=== PATIENT | female | born 1950 | race Caucasian/White ===

== ENCOUNTER → 2018-05-04 08:49 | Outpatient (CLI) | payer MEDICARE, SELFPAY ==
--- NOTE | 2018-05-04 | DI.MRI.S_ITS ---
PROCEDURE: MR KNEE RT WO CON INDICATIONS: UNILATERAL PRIMARY OSTEOARTHRITIS TECHNIQUE: Noncontrast sagittal PD fast spin echo and T2 fast spin echo with fat saturation, sagittal 3-D FLASH with fat saturation; coronal T1 spin echo and PD fast spin echo with fat saturation, and axial PD fast spin echo with fat saturation through the knee. COMPARISON: None. FINDINGS: Image quality: Excellent. Menisci: There is peripheral displacement of medial meniscus bowing medial collateral ligament. A complex tear involving posterior horn of medial meniscus is seen extending to inferior articulating surface. There is no evidence of focal lateral meniscal tear. The meniscal root ligaments appear intact. Cruciate ligaments: Myxoid degenerative changes involving ACL is seen. No full-thickness ACL rupture. PCL is intact. Medial structures: There is low grade proximal medial collateral ligament sprain near its femoral insertion. No MCL rupture.. The posterior oblique ligament, semimembranosus tendon insertions, oblique popliteal ligament, and meniscocapsular junction appear intact. Visualized portions of the pes anserinus tendons appear normal. No abnormal bursal fluid. Lateral structures: The lateral collateral ligament, long and short heads of the biceps femoris tendon appear intact. The popliteus tendon appears normal; the popliteofibular ligament appears intact. The posterosuperior and anteroinferior popliteomeniscal fascicles appear intact. The arcuate and fabellofibular ligaments appear intact, on either side of the lateral inferior geniculate artery. Iliotibial band appears normal. Anterior structures: The quadriceps and patellar tendons appear intact. Patellar alignment is normal. No femoral trochlear dysplasia or ventral trochlear prominence. No edema in the infrapatellar fat pad. Bones and cartilage: Moderate tricompartment osteophyte is seen. No fracture or dislocation. Finding is more prominent in medial femoral tibial compartment. Underlying small osteochondral lesions airway barium portion of medial femoral condyle cannot be excluded. Low-grade chondromalacia patella involving lateral facet of patella cartilage is seen. Joint space: There is small to moderate amount of joint effusion, no gross loose body. No Moore's cyst. Normal appearing synovial plicae are incidentally noted. IMPRESSION: 1. Moderate tricompartment osteoarthritis more prominent in the medial femoral tibial compartment. Small to moderate amount of joint effusion. No fracture or dislocation. 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 2. Complex tear involving posterior horn of medial meniscus extending to inferior articulating surface. No focal lateral meniscal tear. 3. Myxoid degenerative changes throughout ACL. No evidence of ACL rupture. PCL is intact. 4. Low-grade proximal MCL sprain. Dictated by: John Ha M.D. on 05/04/2018 at 10:36 Approved by: John Ha M.D. on 05/04/2018 at 10:56
== END ==
PROVIDERS: Visit Provider Orthopaedic Surgery
DX: M17.11 Unilateral primary osteoarthritis, right knee (principal); M25.461 Effusion, right knee; M22.41 Chondromalacia patellae, right knee; S83.231A Complex tear of medial meniscus, current injury, right knee, initial encounter; S83.411A Sprain of medial collateral ligament of right knee, initial encounter
CPT/HCPCS: 73721

== ENCOUNTER 2018-11-12 05:51 | Day surgery (SDC) | payer MEDICARE, SELFPAY ==
[2018-10-29 12:47] VITALS: BMI 31.2
[2018-11-12] VITALS (10 sets, daily range): BP systolic 89–164; BP diastolic 37–82; PULSE 65–81; RESP 8–18; TEMP 36.2–36.8; O2SAT 95–98; BMI 31.2
--- NOTE | 2018-11-12 06:00 | DI.RAD.S_ITS ---
PROCEDURE: XR KNEE RT 1TO2V INDICATIONS: Postop right total knee arthroplasty TECHNIQUE: 2 views of the knee were acquired. COMPARISON: None. FINDINGS: Bones: No fractures or dislocations. No suspicious bony lesions. Soft tissues: No joint effusion. No suspicious soft tissue calcifications. IMPRESSION: Expected postsurgical change for right knee arthroplasty. Dictated by: Natalie Cheung MD, PhD on 11/12/2018 at 10:37 Approved by: Natalie Cheung MD, PhD on 11/12/2018 at 10:37
[2018-11-12] MEDS: PREGABALIN 75 MG CAPSULE PO (07:08)
[2018-11-12] MEDS: CELECOXIB 200 MG CAPSULE PO (07:08)
[2018-11-12] MEDS: ACETAMINOPHEN 325 MG TABLET 975 MG PO ×2 (07:08→15:26)
[2018-11-12] MEDS: VANCOMYCIN 1,000 MG/200 ML FROZ.PIGGY 200 MG IV (07:10)
[2018-11-12] MEDS: CEFAZOLIN 2 GM/100 ML FROZ.PIGGY IV (07:50)
--- NOTE | 2018-11-12 08:22 | SUR.OPER ---
Supine on padded OR bed, head on pillow, arms secured on padded arm boards at <90 degrees abduction, legs uncrossed, non-operable leg on green cushion and taped over blanket, operable leg with hip vice president consulting services, safety belt at waist.
[2018-11-12] MEDS: BUPIVACAINE 0.25% W/ EPI 50 ML VIAL INJ (08:34)
[2018-11-12] MEDS: BUPIVACAINE LIPOSOME 266 MG/20 ML VIAL INJ (08:34)
[2018-11-12] MEDS: POVIDONE-IODINE 15 ML, SODIUM CHLORIDE 0.9% 250 ML TOP (08:34)
[2018-11-12] MEDS: LACTATED RINGERS 1,000 ML 42 ML IV ×2 (09:28→09:30)
--- NOTE | 2018-11-12 10:11 | PM.PREOP ---
Pre-operative Note Interval Note History & Physical reviewed/Exam performed by Physician: Yes Changes to H&P: No
--- NOTE | 2018-11-12 10:12 | P.OP_ITS ---
Operative Date/Time/Diagnoses Date of procedure: 11/12/18 Time of procedure: 10:12 Pre-op diagnosis: right knee OA Post-op diagnosis: same Procedure & Clinicians Procedure: right total knee arthroplasty Same procedure as scheduled: Yes Indications: The patient has had progressively worsening right knee pain with radiographic changes consistent with arthritis. Non-operative management has failed and the patient has requested total knee replacement. The risks, benefits and alternatives to surgery were discussed with the patient prior to proceeding. Risks discussed included, but were not limited to, failure to relieve pain, stiffness, infection, nerve damage, deep venous thrombosis, pulmonary embolism, stroke, coma, heart attack, permanent paralysis and , as well as the potential need for eventual revision of the prosthetic. Surgeon: Cailin Bay Calender Let Off Operator: Viviane Burns Anesthesia Type: Spinal Operative Notes Findings: Severe right knee osteoarthritis, good stability Closure Type: primary Specimen(s): none sent Prosthetic devices, grafts, tissues, transplants, or devices: [employer] Journey be CS to size 4 femur, size 2 tibia, +9 poly, patella 32 by 7-08/29 Applied: drain(s) Estimated Blood Loss (mL): 250 Blood products transfused: none Tourniquet time (min): 68 Procedure in detail: The patient was seen in the pre-operative area, where the patient identified the right knee as the operative site and this was marked with my initials. The patient received pre-operative antibiotics, and was taken to the operating room and placed on the operative table in the supine position. After satisfactory anesthesia, a registered phlebotomist part time out was performed. The right leg was encircled with a tourniquet about the proximal thigh, and the leg was prepared from the toes to the tourniquet with ChloroPrep in the usual fashion and draped through sterile drapes. The leg was elevated and exsanguinated with Eschmark bandage and the tourniquet inflated to [250] mmHg pressure. The knee was approached through an approximately 18 cm incision centered over the patella and carried into the knee through a medial parapatellar arthrotomy. A portion of the medial and lateral meniscus was resected. Soft tissue was carefully mobilized around the patella the patella was measured with a caliper. Bone was resected from the patella and the patellar height was reconstituted with up an appropriate sized patellar component. A cover was then placed on the patella. A small amount of additional medial and lateral meniscus was resected. The visionare guide fit well to the distal femur. It looked like an appropriate distal femoral cut and the cut was made without difficulty. The rotation was assessed and the appropriate size femoral guide was placed on the distal femur and finishing cuts were made. There was no evidence of notching. The anterior, posterior and chamfer cuts were then made. The posterior osteophytes and soft tissues were then removed. The posterior capsule was injected with part of a mixture of 60 ml 0.25% Marcaine mixed with 20 ml Exparel for post operative pain control. The remainder of this mixture was injected into the capsule and subcutaneous tissues during cement curing. The tibia was prepared and the visionaire guide fit well to the distal tibia. The rotation was assessed. The patient was placed in extension residual medial and lateral meniscus as well as any residual bone was carefully resected. [No] additional tibia was resected. Hemostasis was achieved especially posteriorly. Additional local was injected into the posterior capsule. The extension gap was assessed and additional releases for gap balancing were performed as necessary. It was checked with the gap director regulatory compliance. The femoral component was trial was placed and the notch was finished. Trial tibial and femoral components were then placed and the knee placed through a range of motion. Range of motion was [0-130], with good stability throughout the range. The trials were then removed, and the tibia was finished. The bone was prepared with pulsatile lavage, and dried with a sponge. Cement was applied and the final prosthetics placed. Excess cement was removed during and after cement curing. A brief Betadine soak was performed. After confirming there was no extruded cement posteriorly, the final tibial insert was placed. The knee was copiously irrigated and the tourniquet deflated. Hemostasis was obtained with the [Bovie]. A drain was placed and brought out superolaterally. The capsule was closed with interrupted # 1 black braided suture. The subcutaneous layer was closed with barbed sutures, and the skin with a running 3-0 V-Lock suture and Surgical glue. An Aquacel Ag dressing was applied and the patient was taken to recovery having tolerated the procedure well. Complications: none Condition: stable Disposition: Acute Care Plan for aftercare: The patient will be maintained on a standard total knee replacement protocol with weight bearing as tolerated. The patient will receive aspirin and sequential compression devices for DVT prophylaxis. The patient will be discharged home when safe for the home environment.
--- NOTE | 2018-11-12 10:27 | SUR.PHASEI ---
Tolerating PO intake well, denies pain/nausea. Resp unlabored, skin warm and dry. dressing CDI/elevation
--- NOTE | 2018-11-12 10:28 | SUR.PHASEI ---
Report called to floor
--- NOTE | 2018-11-12 10:42 | SUR.PHASEI ---
1029 to room 223, bed down and locked, call light within reach, VSS, SCDs on, CMS WNL (see assessment), awake, oriented, spouse at bedside, clothing bag placed in closet. No questions from patient, spouse, or staff. Stable.
--- NOTE | 2018-11-12 13:42 | PT.IIE ---
Current Diagnoses Unilateral primary osteoarthritis, right knee (11/12/18) Surgery Performed Operation Date: 11/12/18 07:45 Actual Procedures p Total Knee Arthroplasty(Right) - Cailin Bay MD Surgical History (Last Updated 10/29/18 @ 13:11 by Araceli Childress, RN) Hx of tonsillectomy (Acute) S/P left unicompartmental knee replacement (Acute) Status post bilateral cataract extraction (Acute ~2018) Medical History (Last Updated 10/29/18 @ 13:11 by Araceli Childress RN) Arthritis (Acute) LBBB (left bundle branch block) (Acute) Osteoarthritis (Acute) Physical Therapy Inpatient Evaluation/Re-Eval M1 PT/OT-IP Prior Functional Status Start: 11/12/18 12:01 Freq: NEEDED Status: Active Protocol: Document 11/12/18 13:38 RS (Rec: 11/12/18 13:41 RS [id number]) Medical Review Prior Functional Status Medical History Reviewed Yes Diet/Fluid Consistency Regular Communication no known deficits Mobility and Gait pt is normally independent without AD, denies falls Activities of Daily Living and IADL's ind - denies needing assist Prior Functional Level (Other details) drives Social History Household Members spouse Living Arrangements House Number of Floors (Floors) Two Floors Number of Stairs To Enter/Railing? 2-3STE no rail, full flight of stairs up to 2nd floor Home Equipment Front Wheel Walker Straight Cane M2 PT-IP Current Condition Start: 11/12/18 12:01 Freq: NEEDED Status: Active Protocol: Document 11/12/18 12:33 RS (Rec: 11/12/18 12:43 RS [id number]) Physical Therapy Current Condition Current Condition Evaluation Date 11/12/18 Treatment Diagnosis R TKA Onset Date 11/12/18 Weight Bearing Status Weight Bearing Status Weight Bear as Tolerated M3 PT-IP Subjective Start: 11/12/18 12:01 Freq: NEEDED Status: Active Protocol: Document 11/12/18 13:38 RS (Rec: 11/12/18 13:41 RS [email or web address]) Subjective Physical Therapy Visit Type Visit Stop Time 13:38 Total Visit Minutes 98 M4 PT-IP Mobility and Gait Start: 11/12/18 12:01 Freq: NEEDED Status: Active Protocol: Document 11/12/18 13:38 RS (Rec: 11/12/18 13:41 RS [email or web address]) Gait Assessment Gait Gait Assistance Required: Standby Assistance Distance (Feet) 180 Able to Maintain Weight Bearing Status Yes During Gait Assistive Devices Assistive Device Front Wheeled Walker Gait Deviations General Gait Pattern Within Normal Limits Comments Gait Comments Pt has surprisingly smooth and fluid gait, no limping, symmetrical, relatively WFL. Stair Climbing Assessment Comments Stair Climbing Comments SBA w. SPC and 1 rail up/down 2 steps M5 PT-IP Objective Assessments Start: 11/12/18 12:01 Freq: NEEDED Status: Active Protocol: Document 11/12/18 12:33 RS (Rec: 11/12/18 12:43 RS [id number]) Orientation Orientation/Cognition Level of Alertness Alert Orientation Name Age Birthday Month Date Year Day of Week Place Situation Language Function Ability No Deficits Noted Safety Awareness Understands Safety Issues Memory Description No Deficits Noted Gross Range of Motion Upper Extremity ROM Assessment Within Functional Limits Lower Extremity ROM Assessment Right Impaired Strength Upper Extremity Strength Assessment Within Functional Limits Lower Extremity Strength Assessment Right Impaired Comments Strength Comments RLE not tested due to recent TKA, however, demonstrating at least 3/5 strength Sensation Assessment Sensation Gross Sensation WNL Light Touch Intact Proprioception (Position) Intact M6 PT-IP Treatment Start: 11/12/18 12:01 Freq: NEEDED Status: Active Protocol: Document 11/12/18 12:33 RS (Rec: 11/12/18 12:43 RS [id number]) Physical Therapy Treatment Exercises Exercises Ankle Pumps Quad Sets Heel Slides Straight Leg Raises Short Arc Quads Passive Knee Extension Hang Seated Knee Flexion/Extension Knee ROM Measurement 3-89 Education Education Provided Precautions Weight Bearing Status Post-Op Packet Safety M7 PT-IP Assessment and Plan Start: 11/12/18 12:01 Freq: NEEDED Status: Active Protocol: Document 11/12/18 13:38 RS (Rec: 11/12/18 13:41 RS [email or web address]) PT Summary Assessment and Plan Goals Days to Meet Goals 1
[2018-11-12] MEDS: LACTATED RINGERS 1,000 ML 125 ML IV (13:49)
--- NOTE | 2018-11-12 15:27 | PC.NURSE ---
Admission and discharge pt arrived to floor around 1035. Denied pain. Resting in bed without issue. Did get up to BSC. Urinated without issue. Worked with PT and although did become slightly dizzy, passed PT. Was able to take another walk around entire floor without issue. Medicated with scheduled tylenol. D/c instructions provided to pt and her . educated on pain med management and dressings. Hemovac drain and PIV removed prior to d/c. There was only bloody drainage in the tube, no drainage in the canister to measure. pt left in w/c with NETWORK OPERATIONS PROJECT MANAGER escort and . Pt took all belongings with her including her walker. Aware to contact MD with any additional questions or concerns as well as to f/u with scheduled post op apt.
== END 2018-11-12 15:25 | disposition home or self-care (01) ==
LOC: AC 12:44 → OR 11-13 08:37
PROVIDERS: Visit Provider Orthopaedic Surgery
PROC: 0SRC0JZ Replacement of Right Knee Joint with Synthetic Substitute, Open Approach (ICD-10-PCS; CPT 27447; principal; 2018-11-12 07:45)
DX: M17.11 Unilateral primary osteoarthritis, right knee (principal)
CPT/HCPCS: 27447; 73560; 97110; 97116; 97161; 97530; C1776; C9290; J0690; J1100; J2250; J2274; J2405; J2704; J3010; J3370

== ENCOUNTER → 2023-10-09 07:23 | Outpatient (CLI) | payer MEDICARE, SELFPAY ==
[2018-11-12 11:15] VITALS: BMI 31.2
[2023-10-09 08:06] LABS: Add Manual Diff / Slide Review NO; Basophils Absolute Auto 100 /uL (0-100); Basophils Percent Auto 0.8 % (0-2); Eosinophils Absolute Auto 400 /uL (0-450); Hematocrit 44.7 % (36-46); Hemoglobin 15.1 g/dL (12.0-16.0); Lymphocytes Absolute Auto 2700 /uL (1100-4500); Lymphocytes Percent Auto 32.1 % (25-40); Mean Corpuscular HGB Conc 33.8 % (30-36); Mean Corpuscular Volume 94.8 fL (80-100); Monocytes Absolute Auto 1000 /uL (0-900); Monocytes Percent Auto 11.5 % (3-14); Neutrophils Absolute Auto 4300 /uL (1500-7000); Neutrophils Percent Auto 50.6 % (50-75); Platelet Count 228 X10^3/uL (150-400); Red Blood Cell Count 4.71 X10^6/uL (4.0-5.2); Red Cell Distribution Width 12.9 % (11.6-14.8); White Blood Cell Count 8.5 X10^3/uL (4.5-11.0)
[2023-10-09 08:16] LABS: Bilirubin Urine UA NEGATIVE (NEGATIVE); Color Urine UA YELLOW; Glucose Urine UA NEGATIVE (Negative); Ketones Urine UA NEGATIVE (NEGATIVE); Leukocyte Esterase Urine UA 3+ (NEGATIVE); Nitrite Urine UA POSITIVE (Negative); Occult Blood Urine UA 2+ (Negative); Protein Urine UA NEGATIVE (Negative); Urobilinogen Urine UA 0.2 E.U./dL (0.2)
[2023-10-09 08:20] LABS: Appearance Urine UA CLOUDY; pH Urine UA 6.5 (4.5-8.0)
[2023-10-09 08:21] LABS: Bacteria Urine Many (>30); Culture Indicated Urine Specimen Cultured; RBC Urine 5-10/HPF (0-5/HPF); Squamous Epithelial Cell Urine 0-1 /HPF (0-5/HPF); Urine Volume 10mL (spun); WBC Urine 30-100/HPF (0-5/HPF)
[2023-10-09 08:27] LABS: Erythrocyte Sedimentation Rate 12 MM/HR (0-20)
[2023-10-09 08:33] LABS: BUN Creatinine Ratio 16.7 (6-22); Blood Urea Nitrogen 16 mg/dL (7-17); Calcium 9.7 mg/dL (8.4-10.2); Carbon Dioxide 26 mmol/L (22-32); Chloride 105 mmol/L (98-107); Estimated Glomerular Filt Rate > 60 mL/min (>60); Glucose 90 mg/dL (80-110); HEMOLYSIS < 15 (0-50); Potassium 4.3 mmol/L (3.4-5.1); Sodium 140 mmol/L (137-145)
[2023-10-10 03:46] LABS: x Labcorp Estim. Avg Glu (eAG) 120 mg/dL (.); x Labcorp Hemoglobin A1c 5.8 % (4.8-5.6)
== END ==
LOC: LAB 07:29
PROVIDERS: Referring Provider Orthopaedic Surgery; Visit Provider Orthopaedic Surgery
DX: Z01.818 Encounter for other preprocedural examination (principal); Z01.812 Encounter for preprocedural laboratory examination; R73.9 Hyperglycemia, unspecified; N39.0 Urinary tract infection, site not specified
CPT/HCPCS: 36415; 80048; 81001; 83036; 85025; 85651; 87077; 87086; 87186; 93005; 93010

== ENCOUNTER → 2023-10-11 11:46 | Outpatient (CLI) | payer MEDICARE, SELFPAY ==
[2018-11-12 11:15] VITALS: BMI 31.2
== END ==
PROVIDERS: Visit Provider Nurse Practitioner Family
DX: N39.0 Urinary tract infection, site not specified (principal)
CPT/HCPCS: 87077; 87086; 87186; 93010

== ENCOUNTER 2023-10-24 11:45 | Inpatient (IN) | payer MEDICARE, SELFPAY ==
[2018-11-12 11:15] VITALS: BMI 31.2
[2023-10-18 08:44] VITALS: BMI 30.9
[2023-10-24] VITALS (12 sets, daily range): BP systolic 108–147; BP diastolic 57–89; PULSE 77–92; RESP 16–95; TEMP 36.1–37.2; O2SAT 95–98; BMI 30.9
--- NOTE | 2023-10-24 06:00 | DI.RAD.S_ITS ---
PROCEDURE: XR KNEE LT 1TO2V INDICATIONS: post-op TECHNIQUE: 2 view(s) of the knee acquired. COMPARISON: [facility], JESUS, XR KNEE RT 1TO2V, 11/12/2018, 10:14. [facility], CR, XR KNEE ARTHRITIC SERIES BI, 10/13/2023, 9:05. FINDINGS: Bones: Patient is status post knee joint arthroplasty. Hardware components are in expected positions. Visualized bony structures are intact. Soft tissues: Overlying postoperative changes are noted. IMPRESSION: Expected post-operative appearance of a knee arthroplasty. Dictated by: Esther Vera M.D. on 10/25/2023 at 12:50 Approved by: Esther Vera M.D. on 10/25/2023 at 12:50
[2023-10-24] MEDS: LACTATED RINGERS 1,000 ML 42 ML IV ×2 (12:40→16:54)
[2023-10-24] MEDS: VANCOMYCIN 1,000 MG/200 ML PIGGYBACK 200 MG IV (12:42)
[2023-10-24] MEDS: ACETAMINOPHEN 325 MG TABLET 975 MG PO (12:57)
[2023-10-24] MEDS: CELECOXIB 200 MG CAPSULE PO (12:58)
[2023-10-24 13:22] LABS: COVID19 -Nasal RAPID Negative (Negative)
--- NOTE | 2023-10-24 13:29 | PM.PREOP ---
Pre-operative Note Interval Note History & Physical reviewed/Exam performed by Physician: Yes Changes to H&P: No
--- NOTE | 2023-10-24 13:30 | P.OP_ITS ---
Operative Date/Time/Diagnoses Date of procedure: 10/24/23 Time of procedure: 13:45 Pre-op diagnosis: Left knee unicompartment arthroplasty with progressive patellofemoral and lateral compartment OA Post-op diagnosis: same Procedure & Clinicians Procedure: Revision left total knee arthroplasty Same procedure as scheduled: Yes Indications: The patient has had progressively worsening left knee pain with radiographic changes consistent with arthritis in her lateral and patellofemoral compartments. She has a history of a left knee unicompartment arthroplasty about 10 years ago. Non-operative management has failed and the patient has requested total knee replacement. The risks, benefits and alternatives to surgery were discussed with the patient prior to proceeding. Risks discussed included, but were not limited to, failure to relieve pain, stiffness, infection, nerve damage, deep venous thrombosis, pulmonary embolism, stroke, coma, heart attack, permanent paralysis and , as well as the potential need for eventual rerevision of the prosthetic. Surgeon: Cailin Bay Stone Cleaner: Rudy Weinstein Anesthesia Type: General and Peripheral nerve block Operative Notes Findings: No evidence of loosening, significant patellofemoral and lateral compartment wear, good stability no significant bony defects Closure Type: primary Specimen(s): none sent Prosthetic devices, grafts, tissues, transplants, or devices: Bay and nephew journey BCS 2 size 4 femur, size 2 tibia, 10 x 100 josefina cemented stem in the tibia, patella 35 x 7-1/2 mm, +10 poly, Estimated Blood Loss (mL): 250 Blood products transfused: none Tourniquet time (min): 112 Procedure in detail: The patient was seen in the pre-operative area, where the patient identified the left knee as the operative site and this was marked with my initials. The patient received pre-operative antibiotics, and was taken to the operating room and placed on the operative table in the supine position. After satisfactory anesthesia, a respiratory equipment assistant out was performed. The left leg was encircled with a tourniquet about the proximal thigh, and the leg was prepared from the toes to the tourniquet with ChloroPrep in the usual fashion and draped through sterile drapes. The leg was elevated and exsanguinated with Eschmark bandage and the tourniquet inflated to [250] mmHg pressure. A PA was used during the procedure and was essential for intraoperative retraction and safe implantation of the components. Intraoperative cultures were sent including fluid, soft tissue and bone underneath the tibia and soft tissue and bone underneath the femoral component. The knee was approached through an approximately 18 cm incision centered over the patella and carried into the knee through a medial parapatellar arthrotomy. Portion of the medial and lateral meniscus was resected. Soft tissue was carefully mobilized around the patella the patella was measured with a caliper. Bone was resected from the patella and the patellar height was reconstituted with up an appropriate sized patellar component. A cover was then placed on the patella. A small amount of additional medial and lateral meniscus was resected. For Darrius pins were placed in the bone 2 in the femur and 2 in the tibia for robotic assisted navigation. The femur and the tibia were carefully mapped with the component in place. Flexion and extension gap balancing as well as range of motion rotation and joint line were all defined. The patient did range of motion with both stressed and unstressed data collection. A plan was taken and carefully improved. It looked like she was a candidate for a journey component. The distal lateral femoral cut was made using the bur. Combination of a bur and a saw was used to remove the femoral component. There was no severe defect in the femoral medial condyle. There was significant patellofemoral and lateral compartment wear. A silvino hole was used to slightly enlarge the bur hole and then the 5 in 1 block was placed on the femur and navigated. It was carefully pinned to the femur. The appropriate size femoral guide was placed on the distal femur and finishing cuts were made. There was no evidence of notching. The anterior, posterior and chamfer cuts were then made. The posterior osteophytes and soft tissues were then removed. A large loose body was removed from the posterior medial compartment. The posterior capsule was injected with part of a mixture of 60 ml 0.25% Marcaine mixed with 20 ml Exparel for post operative pain control. The remainder of this mixture was injected into the capsule and subcutaneous tissues during cement curing. The tibia was exposed. Retractors were placed around the tibia. The tibial component was carefully removed using a TTS saw and a regular saw. It was removed with minimal bone loss. I was able to remove it through the cement mantle. A bur was then used to remove the residual lateral tibial bone and it was resected back to the planned tibial cut. The tibia was prepped in the bur all mode. The patient was placed in extension residual medial and lateral meniscus as well as any residual bone was carefully resected. The extension gap appeared adequate. [No] additional tibia was resected. Hemostasis was achieved especially posteriorly. Additional local was injected into the posterior capsule. The femoral component was trial was placed and the notch was finished. Trial tibial and femoral components were then placed and the knee placed through a range of motion. Range of motion was [0-130], with good stability throughout the range. The trials were then removed, and the tibia was finished. The medial side of the tibia was somewhat sclerotic. We made several drill holes into the medial tibial bone and I opted to cement the tibial stem with a short extension stem of 100 mm into the canal. The bone was prepared with pulsatile lavage, and dried with a sponge. Cement was applied and the final prosthetics placed. Excess cement was removed during and after cement curing. A brief Betadine soak was performed. After confirming there was no extruded cement posteriorly, the final tibial insert was placed. The knee was copiously irrigated and the tourniquet deflated. Hemostasis was obtained with the Bovie cautery. The capsule was closed with interrupted # 1 Vicryl. The subcutaneous layer was closed with barbed sutures, and the skin with a running 3-0 V-Lock suture and Surgical glue. A claus dressing was applied and the patient was taken to recovery having tolerated the procedure well. Complications: none Post-operative Condition: stable Disposition: Acute Care Plan for aftercare: The patient will be maintained on a standard total knee replacement protocol with weight bearing as tolerated. The patient will receive baby aspirin and sequential compression devices for DVT prophylaxis. The patient will be discharged home when safe for the home environment.
--- NOTE | 2023-10-24 14:16 | SUR.PREOP ---
Block start time 1405. Time out performed at 1404 Monitoring initiated and maintained throughout procedure. Oxygen and medications given per anesthesiologist instructions. Patient tolerated procedure and remained stable throughout procedure, no adverse reactions noted, VSS. Block end time 1415.
[2023-10-24] MEDS: CEFAZOLIN 2 GM/100 ML PREMIX 100 ML IV ×2 (14:33→22:28)
[2023-10-24] MEDS: TRANEXAMIC ACID 1,000 MG VIAL 1000 MG INJ ×2 (14:41→16:22)
--- NOTE | 2023-10-24 15:01 | SUR.OPER ---
Supine on padded OR bed. Pillow under head, arms secured on padded armboards <90 degree abduction. Safety belt across torso. Non-operative leg secured with tape over blanket over lower leg. Operative leg secured in DeMayo/Julio/Nathe positioner. Foam padded brace at thigh of operative leg.
[2023-10-24] MEDS: BUPIVACAINE 0.25% (PF) 30 ML, EPINEPHrine 0.15 MG INJ (15:11)
[2023-10-24] MEDS: BUPIVACAINE LIPOSOME 266 MG/20 ML VIAL INJ (15:13)
[2023-10-24] MEDS: LACTATED RINGERS 1,000 ML 100 ML IV (18:06)
--- NOTE | 2023-10-24 19:23 | PC.NURSE ---
1800: Up OOB to Bedside commode, voided 375 ml. Call light within reach, IVF initiated, SCD in place. ULISSES dressing, clean CDI.
[2023-10-24] MEDS: OXYCODONE IR 5 MG TABLET PO (20:38)
[2023-10-24] MEDS: ASPIRIN EC 81 MG TABLET PO (20:38)
[2023-10-24] MEDS: DOCUSATE 100 MG CAPSULE PO (20:39)
[2023-10-24] MEDS: IBUPROFEN 400 MG TABLET PO (22:32)
[2023-10-25 01:35] VITALS: BP 114/59; PULSE 88; RESP 16; TEMP 36.3; O2SAT 96
[2023-10-25 04:29] LABS: Hematocrit 38.5 % (36-46)
[2023-10-25] MEDS: CEFAZOLIN 2 GM/100 ML PREMIX 100 ML IV (05:34)
[2023-10-25 05:35] VITALS: BP 135/69; PULSE 89; RESP 16; TEMP 36.6; O2SAT 97
--- NOTE | 2023-10-25 06:37 | P.DS_ITS ---
History of Present Illness History of Present Illness Date Patient Seen: 10/25/23 Time Patient Seen: 06:37 Chief complaint: Left Revision TKA 10/24 Narrative: Operative Date/Time/Diagnoses Date of procedure: 10/24/23 Time of procedure: 13:45 Pre-op diagnosis: Left knee unicompartment arthroplasty with progressive patellofemoral and lateral compartment OA Post-op diagnosis: same Procedure & Clinicians Procedure: Revision left total knee arthroplasty Same procedure as scheduled: Yes Indications: The patient has had progressively worsening left knee pain with radiographic changes consistent with arthritis in her lateral and patellofemoral compartments. She has a history of a left knee unicompartment arthroplasty about 10 years ago. Non-operative management has failed and the patient has requested total knee replacement. The risks, benefits and alternatives to surgery were discussed with the patient prior to proceeding. Risks discussed included, but were not limited to, failure to relieve pain, stiffness, infection, nerve damage, deep venous thrombosis, pulmonary embolism, stroke, coma, heart attack, permanent paralysis and , as well as the potential need for eventual rerevision of the prosthetic. Surgeon: Cailin Bay Electronic Gaming Device Supervisor: Rudy Weinstein Anesthesia Type: General and Peripheral nerve block Operative Notes Findings: No evidence of loosening, significant patellofemoral and lateral compartment wear, good stability no significant bony defects Closure Type: primary Specimen(s): none sent Prosthetic devices, grafts, tissues, transplants, or devices: Bay and nephew audrey BCS 2 size 4 femur, size 2 tibia, 10 x 100 josefina cemented stem in the tibia, patella 35 x 7-1/2 mm, +10 poly, Estimated Blood Loss (mL): 250 Blood products transfused: none Tourniquet time (min): 112 Discharge Providers Provider Date of admission: 10/24/23 11:45 Discharge Date: 10/25/23 Consults: 10/20/23 19:39 Consult to Anesthesiology Routine Comment: Consulting Provider: Anesthesiologist Reason for consultation: Regional block for post operative pain control 10/24/23 06:00 Consult to Anesthesiology Routine Comment: Consulting Provider: Anesthesiologist Reason for consultation: Regional block for post operative pain control 10/24/23 17:35 Consult to Discharge Planning Routine Comment: Consult to Occupational Therapy Evaluate & Treat Comment: Physician Instructions: Evaluate and treat Consult to Physical Therapy Evaluate & Treat Comment: Physician Instructions: postop TKA protocol Discharge provider: Tatyana Sosa PA-C Summary Hospital Course Discharge Diagnosis: Left knee unicompartment arthroplasty with progressive patellofemoral and lateral compartment OA, s/p conversion to left total knee arthroplasty Hospital Course: Ms Lau'delroy hospital course was unremarkable. On the morning of POD# 1, she was feeling well and wanted to go home. She was eating and voiding without difficulty. She had not yet been evaluated by PT but had been OOB and walking independently. Her pain was well-controlled with oral meds. Exam Vital Signs (past 8 hours): - 10/25/23 01:35 10/25/23 05:35 Temperature 97.4 F L 97.9 F Pulse Rate 88 89 Respiratory Rate 16 16 Blood Pressure 114/59 L 135/69 Pulse Oximetry 96 97 Oxygen Flow Rate 0 0 Oxygen Delivery Method Room Air Oxygen Flow Rate 0 Narrative Exam Narrative: 5/5 strength in hip flexors, quadriceps, hamstrings, DF, PF, EHL on left. Sensation to light touch intact throughout LLE. Calf soft, compressible, nontender. ULISSES dressing functioning, SHUKRI CDI. 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 Discharge Plan Discharge Plan Patient Disposition: Home Discharge orders & Medications Prescriptions: New oxycodone 5 mg Tablet 5 mg PO Q4-6H PRN (Reason: Pain, Moderate (4-6)) Qty: 40 0RF docusate sodium 100 mg Capsule 100 mg PO BID PRN (Reason: constipation) Qty: 60 1RF acetaminophen 325 mg Tablet 650 mg PO Q6H PRN (Reason: Fever/Mild Pain (1-3)) Qty: 240 0RF ibuprofen 400 mg Tablet 400 mg PO Q4H PRN (Reason: Pain, Mild (1-3)) Qty: 120 0RF aspirin 81 mg Tablet,Delayed Release (Dr/Ec) 81 mg PO BID Qty: 90 0RF Discontinued aspirin [Aspir-81] 81 mg Tablet,Delayed Release (Dr/Ec) 81 mg PO DAILY acetaminophen 650 mg Tablet Extended Release 650 mg PO BEDTIME PRN (Reason: Pain) Follow up/Referrals: Cailin Bay MD [Physician] - 11/03/23 10:30 am (Follow up w/ Khai Christine PA-C, at [facility] office in [place].) Diet/Activity/Treatments Diet: Diet as Tolerated Activity: Walk frequently! Cold/Heat Therapy: Ice to knee as needed for pain. Skin/Wound/Dressing Care Report to your healthcare provider any signs of infection, such as:: chills, fever, night sweats, unusual drainage and unusual redness Dressing: May remove SHUKRI wrap and shower on 10/27/2023. Leave dressing in place until follow up in office. Battery light will start flashing red in 5-7 days, at which point you can cut it off and dispose of it, but leave the dressing in place. No bathing or otherwise soaking incision. Call the office if the dressing becomes saturated inside. Visit Report/Discharge Packet Instructions: DI for Knee Replacement, DI for Prescription Opioid Use Stand Alone Forms: Patient Portal/API, Stroke Signs & Symptoms, Surgery Discharge
[2023-10-25 08:00] VITALS: BP 123/61; PULSE 78; RESP 16; TEMP 36.3; O2SAT 96
[2023-10-25] MEDS: ASPIRIN EC 81 MG TABLET PO (08:48)
[2023-10-25] MEDS: ACETAMINOPHEN 325 MG TABLET 650 MG PO (08:49)
[2023-10-25] MEDS: OXYCODONE IR 5 MG TABLET PO (08:53)
--- NOTE | 2023-10-25 09:00 | PT.IIE ---
Current Diagnoses Unilateral primary osteoarthritis, left knee (10/24/23) Presence of left artificial knee joint (10/24/23) Presence of unspecified artificial knee joint (10/24/23) Surgery Performed Operation Date: 10/24/23 13:45 Actual Procedures p Total Knee Arthroplasty - Robot Revision(Left) - Cailin Bay MD Surgical History (Last Updated 10/18/23 @ 08:48 by Araceli Childress RN) History of total right knee replacement (11/12/18) Hx of tonsillectomy S/P left unicompartmental knee replacement Status post bilateral cataract extraction (~2018) Medical History (Last Updated 10/29/18 @ 13:11 by Araceli Childerss RN) Arthritis LBBB (left bundle branch block) Osteoarthritis Physical Therapy Inpatient Evaluation/Re-Eval M1 PT/OT-IP Prior Functional Status Start: 10/25/23 11:56 Freq: NEEDED Status: Active Protocol: Document 10/25/23 09:00 AB (Rec: 10/25/23 12:06 AB [id number]) Medical Review Prior Functional Status Medical History Reviewed Yes Communication able to make needs known Mobility and Gait pt stated that she was independent with all mobilities and ambulation without AD Social History Household Members spouse Living Arrangements Apartment/Condo Number of Floors (Floors) Two Floors Number of Stairs To Enter/Railing? 3 steps to enter with L rail ascending pt plans to stay on main level of the house at this time Home Environment Standard Height Toilet,Walk in Shower Home Equipment Front Wheel Walker,Straight Cane,Raised Toilet Seat Without Armrests,Shower Seat without Backrest,Hand Held Shower,Grab Bars In Shower M2 PT-IP Current Condition Start: 10/25/23 11:56 Freq: NEEDED Status: Active Protocol: Document 10/25/23 09:00 AB (Rec: 10/25/23 12:06 AB [id number]) Physical Therapy Current Condition Current Condition Evaluation Date 10/25/23 Treatment Diagnosis s/p L TKA revision; difficulty in walking Onset Date 10/24/23 M3 PT-IP Subjective Start: 10/25/23 11:56 Freq: NEEDED Status: Active Protocol: Document 10/25/23 09:00 AB (Rec: 10/25/23 12:06 AB [id number]) Subjective Physical Therapy Visit Type Type Initial Evaluation Visit Start Time 09:00 Visit Stop Time 10:05 Number of SENIOR RUBY DEVELOPER Visits 65 Physical Therapy Visit Comments Patient Comments agreeable to do PT Therapy Pain Assessment Pain When Pain Assessed At Rest Pain Present Pain Present Pain Reported Location Left Knee Intensity 1 Scale Used increases to 4 with mobility Pain Management Techniques Apply Cold,Distraction, Elevation,Modification of Treatment,Re-positioning, Timing of Activity with Medications M4 PT-IP Mobility and Gait Start: 10/25/23 11:56 Freq: NEEDED Status: Active Protocol: Document 10/25/23 09:00 AB (Rec: 10/25/23 12:06 AB [id number]) PT-Bed Mobility Assessment Supine to Sit Supine to Sit Standby Assistance Sit to Supine Sit to Supine Standby Assistance PT-Transfer Assessment Sit to and From Stand Sit to and from Stand Standby Assistance,1 Person Assistance,Use of Upper Extremities Equipment Transfer Assistive Device Gait Belt,Front Wheeled Walker Orthotic/Prosthetic Devices or Brace: No Transfers Transfer Destination Chair Transfer Technique ambulated Transfer Ability Level of Assist Standby Assistance,1 Person Assistance,Use of Upper Extremities Comments Mobility Comments pt supine in bed and agreeable to do PT. obtained PLOF and home set up from pt. post-op folder provided and reviewed contents. reviewed HEP. pt completed supine to sit SBA. able to sit on EOB SBA. BP: 125/64. no c/o dizziness. pt completed sit to stand SBA and ambulated in room using FWW SBA ~ 30 ft. pt agreed to do stairs. completed sit to stand from chair SBA and ambulated in the hallway using FWW SBA ~ 100 ft. stair climbing training. educated pt on how to do stairs. pt completed up/down steps holding on to L rail with B hands and pt completed SBA. Assisted pt back to her room. pt ambulated from w/c to chair using FWW SBA. positioned pt on the chair. call light and table placed within reach. pt stated that she will be able to inform and instruct her spouse on how to assist her if needed. Gait Assessment Gait Gait Assistance Required: Standby Assistance Distance (Feet) 100 Able to Maintain Weight Bearing Status Yes During Gait Assistive Devices Assistive Device Gait Belt,Front Wheeled Walker Orthotic/Prosthetic Devices or Brace: No Gait Deviations General Gait Pattern Decreased Stride Length, Decreased Feet Clearance Factors Limiting Gait Function Factors Limiting Gait Function Decreased Activity Tolerance, Decreased Strength,Limited Range of Motion,Pain,Poor Balance Stair Climbing Assessment Evaluation Level of Assist On Stairs Standby Assistance Devices Stair Climbing Assistive Devices Left Railing Technique/Endurance Stair Climbing Direction Ascend and Descend Stair Climbing Technique Step to Step Number of Steps Climbed 3 Query Text: Stair Climbing Set # Repetitions (reps) 1 PT-Balance Assessment Sitting Balance and Reactions Static Sitting Balance Ability Normal Dynamic Sitting Balance Ability Normal Standing Balance and Reactions Static Standing Balance Ability Good Dynamic Standing Balance Ability Fair Device Used FWW M5 PT-IP Objective Assessments Start: 10/25/23 11:56 Freq: NEEDED Status: Active Protocol: Document 10/25/23 09:00 AB (Rec: 10/25/23 12:06 [id number]) Orientation Orientation/Cognition Level of Alertness Alert Orientation Name,Place,Situation Language Function Ability No Deficits Noted Safety Awareness Understands Safety Issues Memory Description No Deficits Noted Gross Range of Motion Lower Extremity ROM Assessment Left Impaired Impairments L knee flexion: ~ 80 deg L knee extension: ~ 10 deg less to 0 Strength Lower Extremity Strength Assessment Left Impaired Knee 4-/5 Coordination Assessment Gross Coordination Gross Coordination WNL Sensation Assessment Sensation Gross Sensation WNL Muscle Tone Muscle Tone WNL Yes M6 PT-IP Treatment Start: 10/25/23 11:56 Freq: NEEDED Status: Active Protocol: Document 10/25/23 09:00 AB (Rec: 10/25/23 12:06 [id number]) Physical Therapy Treatment Exercises Exercises Heel Slides Education Education Provided Precautions,Weight Bearing Status,Post-Op Packet,Safety M7 PT-IP Assessment and Plan Start: 10/25/23 11:56 Freq: NEEDED Status: Active Protocol: Document 10/25/23 09:00 AB (Rec: 10/25/23 12:06 [id number]) PT Summary Assessment and Plan Potential Rehabilitation Potential Good Status of Condition at Evaluation Stable Summary Impairments Pain,ROM,Strength,Balance, Coordination,Sensation,Tone, Cognition,Bed Mobility, Transfers,Gait,Activity Tolerance Assessment Summary pt is a 73 y/o F s/p L TKA revision POD 1. pt is WBAT on LLE. pt requiring SBA with mobility using FWW and plans to go home with spouse to assist her. pt has outpt PT set up. pt may go home when medically stable. Goals Bed Mobility Goal Independent Transfer Goal Independent,Front Wheeled Walker Gait Goal Independent,Front Wheel Walker Gait Distance 250 Other Goals improve transfers and ambulation using LRAD ~ 300 ft SBA up/down 3 steps L rail ascending mod I Days to Meet Goals 5 Frequency of Treatment Frequency Of Treatment Twice a Day Treatment Plan Physical Therapy Treatment Plan Bed Mobility Training,Transfer Training,Gait Training, Therapeutic Exercise,Balance Retraining,Post Op Education, Discharge Planning,Hot or Cold Pack,Neuromuscular Re-ed, Coordination Retraining,Manual Therapy Weight Bearing Status Weight Bearing Status Weight Bear as Tolerated Allowed Weight Bearing Amount (enter % LLE WBAT or #) (%) Recommendations To Nursing Amount of Assist Needed 1 Person Assist Discharge Recommendations PT Discharge Recommendations Home with Assistance, Outpatient PT Transportation Needs at Discharge Private Vehicle
--- NOTE | 2023-10-25 10:21 | OT.IPNOTE ---
Attempted OT eval and per pt has RTKA done prior and has her to be able to assist her. Pt states has no OT needs and refused OT eval. Pt to be discharged today.
--- NOTE | 2023-10-25 11:40 | PC.NURSE ---
Pt discharged home at 1140, escorted off floor in wheelchair, accompanied by spouse and hospital staff. IV removed, discharge teaching completed including wound care, new medications and follow up appointments. Questions and concerns discussed. Patient left the floor with all belongings.
--- NOTE | 2023-10-25 13:38 | CM.DANOTE ---
Brief DCP Assessment Note Pt is a 73yo F here following planned left total knee surg on 10.24.23. PCP none listed Payer Medicare and [employer]. [employer] reviewed EMR. Per RN and ortho PA note, pt out of bed prior to working with PT, eager to leave. Per RN, anticipate no CM needs. Pt left prior to being seen by this author. Plan: home with spouse today. No identified CM needs. CM team will follow as needed. IFEANYI Welsh Discharge Planning/Care Management Advanced directive, confirm from FAMILY Start: 10/24/23 18:26 Freq: Q24H Status: Discharge Protocol: Document 10/24/23 18:26 EV (Rec: 10/24/23 18:37 EV [id number]) Advance Directive, confirm on record Time 18:34 Person contacted Jer (spouse) Copy received No CM Discharge Assessment Start: 10/25/23 13:35 Freq: Status: Discharge Protocol: Document 10/25/23 13:35 SL (Rec: 10/25/23 13:38 SL [id number]) Discharge Planning Assessment Assigned Marketing Automation Specialist IFEANYI Quick DPOA/Assigned Designee Name Jer spouse Contact Information [phone] Advance Directives? Yes Advance Directives on File No History Provided By Patient Prior Living Arrangements Apartment/Condo Household Members spouse Type of transporation used prior to Drives own vehicle admit Independent with ADL's Yes Is patient alert and oriented? Yes Barriers to Discharge No Discharge Plan Home Transportation Arrangement family in POV Referrals Initiated None needed Whiteboard Updated in Patient Room with No name and ext. # of Marketing Automation Specialist Review Status In Process Next Review Type Continued Stay Review Pre-Anesthesia Assessment Start: 10/18/23 08:44 Freq: Status: Discharge Protocol: Document 10/18/23 08:44 CAB (Rec: 10/18/23 09:13 CAB [id number]) Pre-Anesthesia Assessment Patient Information Reviewed Via Phone Assessment Diagnostic Results BMP/CMP,CBC,EKG Comment Labs/EKG @ 10/11/23 Primary Care Provider Antonio Lee Comment [facility] in [place] Seen Specialist in Last 12 Months Yes Specialist Seen Orthopedist Primary Language Arabic Preferred Language Arabic Merchandise Adjustment Clerk Required No Height 162.56 cm Weight 81.647 kg Body Mass Index (BMI) 30.9 Hearing Ability Normal Visual Assist Magnifying Glass Dentition Type Teeth, Natural Present,Teeth, Missing Barriers to Learning None Other Aids No Hx Anesthesia Reactions No Hx Family Anesthesia Reaction No Hx Malignant Hyperthermia No Hx Blood Transfusions No Anesthesia Review Requested No Event Coordinator Marketing And Sales No alcohol intake current alcohol intake frequency a few times a week Smoking Status Never smoker Substance Use Type does not use Pain Present Pain Reported Musculoskeletal Symptoms Abnormal Gait,Back Pain, Difficulty Walking,Joint Pain, Limited Range of Motion History of Falling (Recent or History of No ) Patient is completely paralyzed or No completely immobile Mental Status Oriented to own ability Is patient on oxygen? No Does patient have HERNANDEZ/SOB No Hx Sleep Apnea No Currently Taking a Beta Chaim No Can You Climb a Flight of Stairs Without Yes SOB Hx Chest Pain No Hx SOB No Hx Syncope or Dizziness No Anti-Coagulant Therapy No Has a Board Setter No Cardiac Testing No Hx Pacemaker/ICD No Pacemaker Rep Required? No Cardiac Clearance Received Not Applicable Diet Type At Home Regular Dysphagia No Gastrointestinal Symptoms None Urinary Catheter Present No Hx Urinary Self Catheterization No Diabetes No HgbA1C 5.8 Date 10/11/23 Patient No Lactating No Hx Drug Resistant Organism No Presence of External or Internal Medical Yes: Right knee, left knee, Devices bilat eye IOLs Received a COVID vaccine? Yes Received all doses? Yes Marital Status Lives With spouse Current Living Arrangements Apartment/Condo Number of Floors (Floors) Two Floors Number of Stairs To Enter/Railing? 2 steps Support System Child/Children,Friend(s), Spouse Does the Patient Have Assistance After Yes Surgery Patient Discharge Plan Description Return Home Comment Pt not advised on length of stay per surgeon Feels Safe in Current Environment Yes Been Physically Hurt or Threatened By a No Person in Current Environment Do you have thoughts of harming yourself None or others? Are you currently considering suicide? No Do you have a plan to hurt yourself or No Plan others? Do You Have Any Spiritual Beliefs That No May Affect Your HC Choices? Do You Have Any Cultural Practices That No May Affect Your HC Choices? Who Can We Speak to About Patient's Care Family, friends Identifying Code for Release of Patient Declines to issue Information Health Care Proxy/Next of Kin Jer () Health Care Proxy Emergency Contact Name Jer () Emergency Contact Advance Directives? No Power of Sieve Maker No PAC Instructions Do not shave/clip surgical site,Durable medical equipment ,Medications to take/avoid, Nasal antibiotic,No ETOH/ petroleum product on skin DOS, NPO,Post-op transportation,Pre -surgical wash,Sensory aids, Sturdy shoes/comfortable clothes,Do not bring valuables and remove jewelry
== END 2023-10-25 11:42 | disposition home or self-care (01) | DRG 467 ==
PROVIDERS: Admitting Provider Orthopaedic Surgery; Referring Provider Nurse Practitioner Family; Visit Provider Orthopaedic Surgery
PROC: 0SRD0JZ Replacement of Left Knee Joint with Synthetic Substitute, Open Approach (ICD-10-PCS; CPT 27447; principal; 2023-10-24 13:45)
DX: M17.12 Unilateral primary osteoarthritis, left knee (principal); T84.063A Wear of articular bearing surface of internal prosthetic left knee joint, initial encounter
CPT/HCPCS: 36415; 64450; 73560; 85014; 85018; 87070; 87075; 87176; 87205; 87635; 93005; 97116; 97161; 97530; C1776; C9290; J0171; J0690; J1100; J2250; J2405; J2704; J3010